=== PATIENT | male | born 1965 | race Caucasian/White ===

== ENCOUNTER 2017-10-11 20:37 | Emergency (ER) | payer BC, OTHER ==
[~2017-10-11] VITALS: Ht 195.6 cm; Wt 108.9 kg
[2017-10-11 20:43] VITALS: TEMP 36.9; Ht 195.6 cm; Wt 108.9 kg
[2017-10-11] MEDS ORDERED: LIDOCAINE/EPINEPH/TETRACAINE 1 EA SYR EXT STA (21:40)
[2017-10-11] MEDS ORDERED: AMLO-110 PO (21:53)
--- NOTE | 2017-10-11 22:39 | DIAGNOSTIC IMAGING REPORT ---
CERVICAL SPINE W/O CT DOSE: HISTORY: Trauma Fall. facial trauma TECHNIQUE: Multiaxial CT images of the cervical spine were performed and reformatted in the sagittal and coronal plane without the use of contrast. A dose lowering technique was utilized adhering to the principles of ALARA. COMPARISON: None. FINDINGS: No fractures. No subluxation. Prevertebral soft tissues and the C1-C2 interval are intact. No pneumothorax. Moderate degenerative disc change IMPRESSION: No fractures within the cervical spine. Moderate degenerative change. The above report was generated using voice recognition software. It may contain grammatical, syntax or spelling errors. Electronically signed by: Shiva Manuel M.D. 10/11/2017 10:37 PM Dictated Date/Time: 10/11/2017 10:36 PM
--- NOTE | 2017-10-11 22:40 | DIAGNOSTIC IMAGING REPORT ---
HEAD WITHOUT CONTRAST (CT) CT DOSE: HISTORY: Trauma Fall. facial trauma TECHNIQUE: Multiaxial CT images of the head were performed without the use of intravenous contrast. A dose lowering technique was utilized adhering to the principles of ALARA. Comparison: None. Findings: The paranasal sinuses and mastoid air cells are clear. The calvarium and skull base are intact. The ventricles and sulci are within normal limits. There is no mass, hematoma, midline shift, or acute infarct. Impression: No acute intracranial abnormality. The above report was generated using voice recognition software. It may contain grammatical, syntax or spelling errors. Electronically signed by: Shiva Manuel M.D. 10/11/2017 10:39 PM Dictated Date/Time: 10/11/2017 10:38 PM
--- NOTE | 2017-10-11 22:42 | DIAGNOSTIC IMAGING REPORT ---
FACIAL BONES-MXILLOFAC WITHOUT CT DOSE: 1190.28 mGy.cm HISTORY: Trauma Fall. facial trauma TECHNIQUE: Multiaxial CT images of the maxillofacial region were performed and reformatted in the coronal plane without the use of contrast. A dose lowering technique was utilized adhering to the principles of ALARA. COMPARISON: None. FINDINGS: The visualized cervical spine, skull base, pterygoid plates, nasal bones, lamina papyracea, orbital floors, mandible, and zygomatic arches are intact. No fractures. The orbits are unremarkable. Probable nondisplaced cortical fracture tip nasal bones. IMPRESSION: Probable cortical nondisplaced fracture tip nasal bones. Otherwise negative study. The above report was generated using voice recognition software. It may contain grammatical, syntax or spelling errors. Electronically signed by: Shiva Manuel M.D. 10/11/2017 10:41 PM Dictated Date/Time: 10/11/2017 10:39 PM
[2017-10-11 23:28] VITALS: BP 123/80; PULSE 94; O2SAT 99
--- NOTE | 2017-10-12 20:51 | EMERGENCY ROOM VISIT NOTE ---
History First contact with patient: 21:04 Chief Complaint: LACERATION/CUT (SUT/DERMABOND) Stated Complaint: CUT ON FOREHEAD Nursing Triage Summary: Pt reports he fell down 5 steps and lacerated forehead. Pt denies any LOC. It happened 30 minutes ago. History of Present Illness The patient is a 52 year old male who presents to the Emergency Room with complaints of head injury and facial lacerations after falling down 5 steps just prior to arrival. The patient states the fall was mechanical in nature and he does not believe that he lost consciousness. His primary injury appears to be to his forehead and left eyebrow. He is also complaining of nasal pain, and believes that he may have broken his nose. The patient does not take blood thinners and considers himself usually healthy. He believes his tetanus is up- to-date. He does not report extremity injury. No chest pain, chest tightness, palpitations, lightheadedness, or dizziness before or after the event. He rates his current discomfort a 5/10 without radiation. He has not taken anything [id number] for pain. He lives in [facility] and will be returning home tomorrow. Review of Systems More than 10 systems were reviewed and otherwise negative with the exception of history of present illness. Past Medical/Surgical History No pertinent chronic medical disease Family History No pertinent family history Social History Smoking Status: Former Smoker Occupation Status: employed Current/Historical Medications Scheduled Amlodipine (Norvasc), 5 MG PO DAILY Physical Exam Vital Signs Date Time Temp Pulse Resp B/P (MAP) Pulse Ox O2 Delivery O2 Flow Rate FiO2 10/11/17 23:28 94 17 123/80 99 10/11/17 20:43 36.9 67 16 133/79 98 Room Air Physical Exam VITALS: Vitals are noted on the nurse's note and reviewed by myself. Vital signs stable. GENERAL: Well-developed, well-nourished, white male, who is in no acute distress and resting comfortably. Patient is cooperative with the examination. GCS 15. HEAD: Superficial abrasions appreciated across the forehead and left side forehead. There are 2 distinct lacerations. The first is just left of midline , horizontal, linear, measuring 2.0 cm in length on the forehead. The second is through the mid aspect of the left eyebrow, measuring 1.0 cm in length. Both of these gape and will require repair. EARS: External ear normal. External auditory canals clear, tympanic membranes pearly beard without erythema or effusion bilaterally. EYES: Pupils equal round and reactive to light and accommodation. Conjunctivae without injection, sclerae without icterus. Extraocular movements intact. NOSE: Patent, turbinates without inflammation or discharge. No epistaxis or septal hematoma. Abrasion appreciated over the nasal bone MOUTH: Mucous membranes moist. Tonsils are not enlarged. Pharynx without erythema, blood, or exudate. Uvula midline. Airway patent. NECK: Supple without nuchal rigidity. No lymphadenopathy. No thyromegaly. Cervical spine is nontender. HEART: Regular rate and rhythm without murmurs gallops or rubs. LUNGS: Clear to auscultation bilaterally without wheezes, rales or rhonchi. No retractions or accessory muscle use. ABDOMEN: Positive normal bowel sounds x 4. Soft, nontender, without masses or organomegaly. No guarding or rebound tenderness. MUSCULOSKELETAL: No muscle atrophy, erythema, or edema noted. Full range of motion without joint tenderness in all extremities. No tenderness to palpation. Normal gait. Strength 5/5 throughout. NEURO: Patient was alert and oriented to person place and time. CN II through XII grossly intact. No focal neurological deficits. Deep tendon reflexes 2+ throughout. SKIN: The skin was without rashes, erythema, edema, or bruising. Capillary refill less than 2 seconds. Medical Decision & Procedures ER Provider Diagnostic Interpretation: HEAD WITHOUT CONTRAST (CT) CT DOSE: HISTORY: Trauma Fall. facial trauma TECHNIQUE: Multiaxial CT images of the head were performed without the use of intravenous contrast. A dose lowering technique was utilized adhering to the principles of ALARA. Comparison: None. Findings: The paranasal sinuses and mastoid air cells are clear. The calvarium and skull base are intact. The ventricles and sulci are within normal limits. There is no mass, hematoma, midline shift, or acute infarct. Impression: No acute intracranial abnormality. FACIAL BONES-MXILLOFAC WITHOUT CT DOSE: 1190.28 mGy.cm HISTORY: Trauma Fall. facial trauma TECHNIQUE: Multiaxial CT images of the maxillofacial region were performed and reformatted in the coronal plane without the use of contrast. A dose lowering technique was utilized adhering to the principles of ALARA. COMPARISON: None. FINDINGS: The visualized cervical spine, skull base, pterygoid plates, nasal bones, lamina papyracea, orbital floors, mandible, and zygomatic arches are intact. No fractures. The orbits are unremarkable. Probable nondisplaced cortical fracture tip nasal bones. IMPRESSION: Probable cortical nondisplaced fracture tip nasal bones. Otherwise negative study. CERVICAL SPINE W/O CT DOSE: HISTORY: Trauma Fall. facial trauma TECHNIQUE: Multiaxial CT images of the cervical spine were performed and reformatted in the sagittal and coronal plane without the use of contrast. A dose lowering technique was utilized adhering to the principles of ALARA. COMPARISON: None. FINDINGS: No fractures. No subluxation. Prevertebral soft tissues and the C1-C2 interval are intact. No pneumothorax. Moderate degenerative disc change IMPRESSION: No fractures within the cervical spine. Moderate degenerative change. Medications Administered Medications (Trade) Dose Ordered Sig/Yeison Route Start Time Stop Time Status Last Admin Dose Admin Tetracaine/ Epinephrine/ Lidocaine (L.e.t. Gel 4%/ 1:100/0.5%) 1 ea NOW STAT EXT 10/11/17 21:40 10/11/17 21:42 DC 10/11/17 21:48 1 EA Procedure Laceration repair. Patient elects to have their lacerations repaired. Verbal consent was obtained to perform the procedure. There is an abundance of materials available for the procedure. Patient is not allergic to latex. Using sterile technique the wounds were cleaned with Betadine. The areas were sterilely draped. A total of 4 ml of 1% buffered lidocaine was used to anesthetize the lacerations. Once the patient was anesthetized, the wounds were copiously irrigated under pressure with sterile saline. The wounds were explored and there were no deep structures injured such as tendons, bone, or significant blood vessels. The mid forehead laceration was repaired using 4 simple interrupted 6-0 nylon sutures with the wound edges being well approximated. Hemostasis was achieved. The eyebrow laceration was repaired using 2 simple interrupted 6-0 nylon sutures with the wound edges being well approximated. Hemostasis was achieved. The areas were cleaned with sterile saline and dressed with bacitracin ointment and bandage. Patient tolerated the procedure well without complications. Blood loss was negligible. ED Course Physical exam and history were performed. Nursing notes, EMR, and Medication List were personally reviewed. Patient appears to have suffered a mechanical fall with injuries to his face as described above. The patient appears well otherwise without significant extremity or chest/abdominal injuries. He was placed in a cervical spine collar. CT scans of the head, neck, and face were performed. The patient's lacerations were repaired as above. The patient CT scan is returned as above without intracranial bleed or cervical spine fracture. He appears to have a nasal tip fracture. His cervical spine collar was removed, and overall he appears well for discharge home. Patient lives in [facility] and will be returning there in the morning. He is to follow with ENT and his primary care physician for further management. He was otherwise invited back to the ER with any new, worsening, or concerning symptoms. He voiced understanding and rated his discomfort a 1/10 at the time of departure. The chart was completed utilizing [employer] Speech Voice Recognition Software. Grammatical errors, random word insertions, pronoun errors, and incomplete sentences are an occasional consequence of this system due to software limitations, ambient noise, and hardware issues. Any formal questions or concerns about the content, text, or information contained within the body of this dictation should be directly addressed to the provider for clarification. . Medical Decision Differential diagnosis: Etiologies such as sprain, strain, dislocation, concussion, contusion, fracture , subdural hematoma, epidural hematoma, intraparenchymal hemorrhage, as well as other traumatic pathologies were entertained. Impression Primary Impression: Fall Additional Impressions: Nasal bone fracture Laceration Head injury Departure Information Dispostion Home / Self-Care Condition GOOD Forms HOME CARE DOCUMENTATION FORM, IMPORTANT VISIT INFORMATION Patient Instructions [facility], ED Head Injury Closed, ED Laceration All, ED Scar Tips to Minimize Additional Instructions You were seen and evaluated today on an emergency basis only. This is not a substitute for, or an effort to provide, complete comprehensive medical care. It is not possible to recognize and treat all injuries or illnesses in a single emergency department visit. For this reason it is recommended that you followup with Ear nose and throat in 7-14 days for recheck. For baseline pain relief you may alternate ibuprofen and acetaminophen every 4 hours for pain control. Take 600 mg ibuprofen (Advil) and then 4 hours later take 1000 mg acetaminophen (Tylenol). Do not take more than 3000 mg acetaminophen in a single day. Keep wound clean and dry. Do not allow any crusting or dried blood to accumulate on sutures. If this occurs, use a mild soap/water on a Q-tip to clean the wound. Do not use Peroxide to clean the wound as this can delay healing Use an antibiotic ointment like Bacitracin for 3-4 days, then let wound dry. You may bathe and shower as normal, but DO NOT SOAK the wound. Suture removal in about 5-7 days with your Family Doctor or in the ER. Return sooner for any signs of infection, increasing redness, swelling, or drainage. You are welcome to return to the emergency department anytime with new, worsening, or concerning symptoms. Problem Qualifiers
== END 2017-10-11 23:30 | disposition home or self-care (01) ==
LOC: C.EDB 20:39 → C.EDD 23:30
DX: S02.2XXA Fracture of nasal bones, initial encounter for closed fracture (principal); S01.81XA Laceration without foreign body of other part of head, initial encounter; W10.9XXA Fall (on) (from) unspecified stairs and steps, initial encounter; Z87.891 Personal history of nicotine dependence; R40.2412 Glasgow coma scale score 13-15, at arrival to emergency department